=== PATIENT | female | born 1970 | race Caucasian/White ===

== ENCOUNTER → 2017-11-07 12:00 | Outpatient (CLI) | payer MEDICAID, SELFPAY ==
[2017-11-07 14:29] LABS: Erythrocyte Sedimentation Rate 10 mm/hr (0-20)
[2017-11-08 09:14] LABS: RA Latex Turbid. 10.3 IU/mL (0.0-13.9)
[2017-11-09 22:09] LABS: Anti-Cyclic Citrullinated Pept 4 units (0-19)
[2017-11-11 11:31] LABS: Antinuclear Antibodies, IFA Positive (.)
== END ==
PROVIDERS: PCP Internal Medicine; Visit Provider Internal Medicine
DX: E04.9 Nontoxic goiter, unspecified (principal); E03.9 Hypothyroidism, unspecified; I10 Essential (primary) hypertension; M17.0 Bilateral primary osteoarthritis of knee
CPT/HCPCS: 36415; 85651; 86038; 86431

== ENCOUNTER → 2021-09-03 09:49 | Outpatient (CLI) | payer OTHER, SELFPAY ==
--- NOTE | 2021-09-03 09:56 | ECG_ITS ---
APPROVED REPORT Exam: Resting ECG HR:55 bpm ECG Measurements Heart Rate [address] 168 P 31 QRSd 90 QRS 14 QT 418 T 22 QTc 399 Conclusion Sinus bradycardia Otherwise normal ECG Electronically signed by : Graham Sam MD 09/10/2021 12:05:32
== END ==
PROVIDERS: PCP Internal Medicine; Visit Provider Internal Medicine
DX: R07.9 Chest pain, unspecified (principal)
CPT/HCPCS: 93005

== ENCOUNTER → 2023-03-05 11:02 | Outpatient (CLI) | payer OTHER, SELFPAY ==
[2023-03-05 14:15] LABS: Basophils % 0.6 % (0.1-2.0); Eosinophils # 0.2 K/mm3 (0.0-0.4); Eosinophils % 4.5 % (0.1-12.0); Hematocrit 42.3 % (37.0-47.0); Hemoglobin 14.2 g/dL (12.2-16.2); Lymphocytes # 1.4 K/mm3 (0.7-4.5); Lymphocytes % 27.7 % (10-50); Mean Corpuscular HGB Conc 33.6 g/dL (31.8-35.4); Mean Corpuscular Hemoglobin 28.2 pg (27.0-31.2); Mean Platelet Volume 8.7 fl (7.4-10.4); Monocytes # 0.2 K/mm3 (0.1-1.0); Monocytes % 4.6 % (1.7-9.3); Neutrophils # 3.2 K/mm3 (1.8-7.8); Neutrophils % 62.6 % (37.0-80.0); Platelet Count 243 K/mm3 (142-424); Red Blood Count 5.04 M/mm3 (4.20-5.40); Red Cell Distribution Width 15.1 % (11.5-17.5); White Blood Count 5.1 K/mm3 (4.8-10.8)
[2023-03-05 14:36] LABS: Alanine Aminotransferase 42 U/L (12-78); Albumin Level 4.2 g/dl (3.5-5.0); Albumin/Globulin Ratio 1.7 (1.1-1.8); Alkaline Phosphatase 78 U/L (38-126); Anion Gap 14.6 mEq/L (5-15); Aspartate Amino Transferase 36 U/L (14-36); Bilirubin,Total 0.6 mg/dl (0.2-1.3); Blood Urea Nitrogen 11 mg/dl (7-17); Carbon Dioxide 27 mmol/L (22.0-30.0); Chloride 101 mmol/L (98-107); Chol/HDL Ratio 3.7 (1-3.5); Cholesterol 158 mg/dl (140-200); Estimated Glomerular Filt Rate 88 ml/min (>60); GFR (African American) 106 ML/MIN (>60); Globulin 2.5 g/dL (1.3-3.2); Glucose 76 mg/dl (74-100); HDL Cholesterol 43 mg/dl (40-60); Potassium 3.6 mmoL/L (3.5-5.1); Sodium 139 mmol/L (136-145); Total Protein,Serum 6.7 g/dl (6.3-8.2); Triglycerides 286 mg/dl (30-150); VLDL Cholesterol 57 mg/dL (0-40)
[2023-03-05 14:47] LABS: Direct LDL Cholesterol 77.21 mg/dL (100-129)
[2023-03-05 15:07] LABS: Thyroid Stimulating Hormone 1.71 uIU/mL (0.465-4.68)
[2023-03-05 16:04] LABS: Erythrocyte Sedimentation Rate 62 mm/hr (0-30)
== END ==
PROVIDERS: PCP Internal Medicine; Visit Provider Internal Medicine
DX: I10 Essential (primary) hypertension (principal); E78.5 Hyperlipidemia, unspecified; M79.7 Fibromyalgia; M17.0 Bilateral primary osteoarthritis of knee; F33.0 Major depressive disorder, recurrent, mild
CPT/HCPCS: 80053; 80061; 84443; 85025; 85651

== ENCOUNTER → 2023-03-14 09:49 | Outpatient (CLI) | payer OTHER, SELFPAY ==
[2023-03-15 16:08] LABS: Anti-Cyclic Citrullinated Pept 5 units (0-19)
[2023-03-17 15:09] LABS: Cytoplasmic (C-ANCA) <1:20 titer (Neg:<1:20); Perinuclear (P-ANCA) <1:20 titer (Neg:<1:20)
[2023-03-20 09:14] LABS: Lyme B. burgdorferi PCR Blood Negative (Negative)
[2023-04-13 21:14] LABS: Antinuclear Antibodies (ANA) Negative; Rheumatoid Factor IGA < 7 U (<7); Rheumatoid Factor IGM < 7 U (<7)
== END ==
PROVIDERS: PCP Internal Medicine; Visit Provider Internal Medicine
DX: R70.0 Elevated erythrocyte sedimentation rate (principal)
CPT/HCPCS: 36415; 86038; 86200; 86256; 86431; 87476

== ENCOUNTER → 2023-03-25 10:28 | Outpatient (CLI) | payer OTHER, SELFPAY ==
--- NOTE | 2023-03-25 10:30 | XR_ITS ---
FINAL REPORT CLINICAL HISTORY: right heel pain FINDINGS: RIGHT FOOT 3 views of the right foot were obtained. There is no acute fracture or dislocation. Visualized joint spaces are normally aligned. Soft tissues are unremarkable. There is a small to moderate plantar spur of the calcaneus as well as a mild Adán deformity. 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 IMPRESSION: No acute bony abnormality. Reviewed, Interpreted and Dictated by Rafa Brewer MD Transcribed by Jannet Roberson Authenticated and [facility]
--- NOTE | 2023-03-25 10:30 | XR_ITS ---
FINAL REPORT CLINICAL HISTORY: left heel pain COMPARISON: None FINDINGS: LEFT FOOT Three views of the left foot demonstrate no acute fracture or dislocation. The visualized joint spaces are normally aligned. The soft tissues are unremarkable. There is a small to moderate plantar spur of the calcaneus as well as a mild Adán deformity. IMPRESSION: No acute bony abnormality. Reviewed, Interpreted and Dictated by Rafa Brewer MD Transcribed by Jannet Roberson Authenticated and [facility]
== END ==
PROVIDERS: PCP Internal Medicine; Visit Provider Podiatrist
DX: M79.671 Pain in right foot (principal); M79.672 Pain in left foot
CPT/HCPCS: 73630

== ENCOUNTER → 2023-08-07 11:16 | Outpatient (POV) | payer OTHER, SELFPAY | PROVIDERS: Visit Provider Specialist/Technologist | DX: Z00.00 Encounter for general adult medical examination without abnormal findings (principal) ==

== ENCOUNTER → 2023-09-25 08:16 | Outpatient (CLI) | payer OTHER, SELFPAY ==
--- NOTE | 2023-09-25 09:01 | MR_ITS ---
CLINICAL HISTORY: Asymmetrical Hearing Loss COMPARISON: None FINDINGS: Multiplanar MR imaging of the brain was performed without and with contrast. There is no evidence of intracranial hemorrhage or mass. No abnormal extra-axial fluid collection is seen. The ventricular size is within normal limits. There is no evidence of shift of the midline structures. The posterior fossa and brainstem have an unremarkable appearance. No area of abnormal restricted diffusion is identified. No abnormal contrast enhancement is seen. Normal major vessel vascular flow voids are noted. There is minimal abnormal signal present in the mastoid air cells bilaterally, that may represent a minimal mastoiditis. IMPRESSION: Minimal abnormal signal present in the mastoid air cells bilaterally, possibly a minimal mastoiditis. Otherwise, no acute intracranial abnormality identified. Reviewed, Interpreted and Dictated by Rafa Brewer, Transcribed by Jannet Roberson Signed by Rafa Brewer on 09/25/2023 12:52:55 PM, Eastern Time MTDD
[2023-09-25 09:08] LABS: Blood Urea Nitrogen 17 mg/dl (7-17); Estimated Glomerular Filt Rate 43 ml/min (>60); GFR (African American) 52 ML/MIN (>60)
== END ==
PROVIDERS: PCP Internal Medicine; Visit Provider Nurse Practitioner
DX: H91.8X3 Other specified hearing loss, bilateral (principal)
CPT/HCPCS: 70553; 82565; 84520; A9576

== ENCOUNTER 2024-03-17 16:37 | Outpatient (CLI) | payer OTHER, SELFPAY ==
[2024-03-17 16:56] LABS: Basophils % 0.8 % (0.1-2.0); Eosinophils # 0.2 K/mm3 (0.0-0.4); Eosinophils % 4.2 % (0.1-12.0); Hematocrit 44.8 % (37.0-47.0); Hemoglobin 14.8 g/dL (12.2-16.2); Lymphocytes # 1.2 K/mm3 (0.7-4.5); Lymphocytes % 22.4 % (10-50); Mean Corpuscular HGB Conc 33.1 g/dL (31.8-35.4); Mean Corpuscular Volume 87.6 fl (81-99); Mean Platelet Volume 8.7 fl (7.4-10.4); Monocytes # 0.2 K/mm3 (0.1-1.0); Monocytes % 3.9 % (1.7-9.3); Neutrophils # 3.8 K/mm3 (1.8-7.8); Neutrophils % 68.7 % (37.0-80.0); Platelet Count 198 K/mm3 (142-424); Red Blood Count 5.11 M/mm3 (4.20-5.40); Red Cell Distribution Width 15.4 % (11.5-17.5); White Blood Count 5.6 K/mm3 (4.8-10.8)
[2024-03-17 17:30] LABS: Erythrocyte Sedimentation Rate 9 mm/hr (0-30)
[2024-03-17 19:14] LABS: Chloride 104 mmol/L (98-107); Potassium 4.1 mmoL/L (3.5-5.1); Sodium 140 mmol/L (136-145)
[2024-03-17 19:16] LABS: Blood Urea Nitrogen 12 mg/dl (7-17); Estimated Glomerular Filt Rate 65 ml/min (>60); GFR (African American) 79 ML/MIN (>60)
[2024-03-17 19:17] LABS: Alanine Aminotransferase 42 U/L (12-78); Albumin Level 4.2 g/dl (3.5-5.0); Albumin/Globulin Ratio 1.4 (1.1-1.8); Alkaline Phosphatase 84 U/L (38-126); Anion Gap 10.1 mEq/L (5-15); Aspartate Amino Transferase 30 U/L (14-36); Bilirubin,Total 0.6 mg/dl (0.2-1.3); Carbon Dioxide 30 mmol/L (22.0-30.0); Cholesterol 221 mg/dl (140-200); Globulin 2.9 g/dL (1.3-3.2); Total Protein,Serum 7.1 g/dl (6.3-8.2); Triglycerides 363 mg/dl (30-150); VLDL Cholesterol 73 mg/dL (0-40)
[2024-03-17 19:18] LABS: Calcium 9.8 mg/dl (8.4-10.2); Chol/HDL Ratio 4.5 (1-3.5); Glucose 84 mg/dl (74-100); HDL Cholesterol 49 mg/dl (40-60)
[2024-03-17 19:43] LABS: Direct LDL Cholesterol 105.76 mg/dL (100-129)
[2024-03-17 20:05] LABS: Thyroid Stimulating Hormone 1.04 uIU/mL (0.465-4.68)
[2024-03-19 12:34] LABS: Anti-Cyclic Citrullinated Pept 7 units (0-19)
== END 2024-03-17 23:59 | disposition home or self-care (01) ==
LOC: LAB.DROPOF 16:38
PROVIDERS: PCP Internal Medicine; Visit Provider Internal Medicine
DX: I10 Essential (primary) hypertension (principal); M17.0 Bilateral primary osteoarthritis of knee; E03.9 Hypothyroidism, unspecified; E04.9 Nontoxic goiter, unspecified; E78.5 Hyperlipidemia, unspecified; F33.0 Major depressive disorder, recurrent, mild; G43.809 Other migraine, not intractable, without status migrainosus; M79.7 Fibromyalgia
CPT/HCPCS: 80053; 80061; 84443; 85025; 85651; 86200

== ENCOUNTER 2024-09-21 10:51 | Outpatient (CLI) | payer OTHER, SELFPAY ==
[2024-09-21 12:50] LABS: Basophils % 0.7 % (0.1-2.0); Eosinophils # 0.2 K/mm3 (0.0-0.4); Eosinophils % 3.2 % (0.1-12.0); Hematocrit 40.7 % (37.0-47.0); Hemoglobin 14.2 g/dL (12.2-16.2); Lymphocytes # 1.2 K/mm3 (0.7-4.5); Lymphocytes % 24.9 % (10-50); Mean Corpuscular HGB Conc 34.9 g/dL (31.8-35.4); Mean Corpuscular Hemoglobin 29.8 pg (27.0-31.2); Mean Corpuscular Volume 85.4 fl (81-99); Mean Platelet Volume 8.4 fl (7.4-10.4); Monocytes # 0.3 K/mm3 (0.1-1.0); Neutrophils # 3.1 K/mm3 (1.8-7.8); Neutrophils % 65.2 % (37.0-80.0); Platelet Count 195 K/mm3 (142-424); Red Blood Count 4.76 M/mm3 (4.20-5.40); White Blood Count 4.8 K/mm3 (4.8-10.8)
[2024-09-21 13:52] LABS: Alanine Aminotransferase 37 U/L (12-78); Albumin Level 4.2 g/dl (3.5-5.0); Albumin/Globulin Ratio 1.7 (1.1-1.8); Alkaline Phosphatase 80 U/L (38-126); Aspartate Amino Transferase 32 U/L (14-36); Bilirubin,Total 0.8 mg/dl (0.2-1.3); Blood Urea Nitrogen 12 mg/dl (7-17); Carbon Dioxide 32 mmol/L (22.0-30.0); Cholesterol 186 mg/dl (140-200); Estimated Glomerular Filt Rate 58 ml/min (>60); GFR (African American) 70 ML/MIN (>60); Globulin 2.5 g/dL (1.3-3.2); Total Protein,Serum 6.7 g/dl (6.3-8.2); Triglycerides 352 mg/dl (30-150); VLDL Cholesterol 70 mg/dL (0-40)
[2024-09-21 13:55] LABS: Calcium 9.8 mg/dl (8.4-10.2); Chloride 102 mmol/L (98-107); Chol/HDL Ratio 4.8 (1-3.5); Glucose 70 mg/dl (74-100); HDL Cholesterol 39 mg/dl (40-60); Sodium 141 mmol/L (136-145)
[2024-09-21 14:04] LABS: Direct LDL Cholesterol 94.53 mg/dL (100-129)
[2024-09-21 14:23] LABS: Thyroid Stimulating Hormone 1.24 uIU/mL (0.465-4.68)
== END 2024-09-21 23:59 | disposition home or self-care (01) ==
LOC: LAB.DROPOF 09-22 06:58
PROVIDERS: PCP Internal Medicine; Visit Provider Internal Medicine
DX: E03.9 Hypothyroidism, unspecified (principal); E78.5 Hyperlipidemia, unspecified; I10 Essential (primary) hypertension; Z72.0 Tobacco use
CPT/HCPCS: 80050; 80053; 80061; 84443; 85025

== ENCOUNTER 2025-05-09 14:00 | Outpatient (CLI) | payer OTHER, SELFPAY ==
[2025-05-09 18:29] LABS: Albumin Level 4.4 g/dl (3.5-5.0); Chloride 98 mmol/L (98-107); Potassium 4.8 mmoL/L (3.5-5.1); Sodium 140 mmol/L (136-145)
[2025-05-09 18:31] LABS: Blood Urea Nitrogen 13 mg/dl (7-17); Creatinine,Serum 1.20 mg/dl (0.52-1.04); Estimated Glomerular Filt Rate 47 ml/min (>60); GFR (African American) 57 ML/MIN (>60)
[2025-05-09 18:32] LABS: Alanine Aminotransferase 35 U/L (12-78); Albumin/Globulin Ratio 1.5 (1.1-1.8); Alkaline Phosphatase 77 U/L (38-126); Anion Gap 13.8 mEq/L (5-15); Aspartate Amino Transferase 31 U/L (14-36); Bilirubin,Total 0.8 mg/dl (0.2-1.3); Calcium 9.6 mg/dl (8.4-10.2); Carbon Dioxide 33 mmol/L (22.0-30.0); Cholesterol 215 mg/dl (140-200); Globulin 2.9 g/dL (1.3-3.2); Glucose 69 mg/dl (74-100); HDL Cholesterol 40 mg/dl (40-60); Total Protein,Serum 7.3 g/dl (6.3-8.2); Triglycerides 352 mg/dl (30-150)
[2025-05-09 19:05] LABS: Thyroid Stimulating Hormone 1.07 uIU/mL (0.465-4.68)
== END 2025-05-09 23:59 | disposition home or self-care (01) ==
LOC: LAB.DROPOF 05-10 12:38
PROVIDERS: PCP Internal Medicine; Visit Provider Internal Medicine
DX: E78.5 Hyperlipidemia, unspecified (principal); I10 Essential (primary) hypertension; E03.9 Hypothyroidism, unspecified
CPT/HCPCS: 80053; 80061; 84443

== ENCOUNTER 2025-06-29 10:40 | Outpatient (CLI) | payer OTHER, SELFPAY ==
--- OUTSIDE RECORDS SUMMARY | 2025-05-25 13:15 | XMS_ITS | Encounter Summary ---
Author Organization [email or web address] ([place], [place], [place], [place]) Address [address] [place] [address] Care Team Providers Care Hadoop Software Engineer Name Role Phone Kristina Guzman MD Unavailable [phone] Graham Sam MD Primary Care Provider [phone] Reason for Referral * Other (Routine) - Closed Specialty Diagnoses / Procedures Referred By Wilbert back Referred To Contact Diagnoses Carpal tunnel syndrome on left Procedures EMG W/ NCS Kristina Guzman MD [address] [place] [address] Phone: tel: fax: Tobias Pantoja, PT [address] [place] [address] Phone: tel: fax: Referral ID Status Reason Start Date Expiration Date Visits Re quested Visits Authorized [id number] Closed 06/08/2025 06/08/2026 1 1 Reason for Visit * Reason Comments Follow-up Left carpal tunnel s yndrome Encounter Details Date Type Department Care Team (Late st Contact Info) Description 05/25/2025 1:15 PM EDT Office Visit [facility] - [address] [place] [address] Kristina Guzman MD [address] [place] [address] Carpal tunnel syndrome on right (Primary Dx); Carpal tunnel syndrome on left; Trigger middle finger of left hand Social History Tobacco Use Types Packs/Day Years Used Date Smoking Tobacco: Never Smokeless Tobacco: Never Tobacco Cessation:Counseling Given: Not Answered Alcohol Use Standard Drinks/Week Comments Never 0 (1 standard drink = 0.6 oz pur e alcohol) Comments Unknown Sex and Gender Information Value Date Recorded Sex Assigned at Not on file Legal Sex Female 10:19 AM CDT Gender Identity Not on file Sexual Orientation Not on file documented as of this encounter Last Filed Vital Signs Vital Sign Reading Time Taken Comments Blood Pressure 122/88 05/25/2025 1:23 PM EDT Pulse 76 05/25/2025 1:23 PM EDT Temperature - - Respiratory Rate - - Oxygen Saturation - - Inhaled Oxygen Concentration - - Weight 106.6 kg (235 lb) 05/25/2025 1:23 PM EDT Height 165.1 cm (5' 5 ) 05/25/2025 1:23 PM EDT Body Mass Index 39.11 05/25/2025 1:23 PM EDT documented in this encounter Progress Notes * Kristina Guzman MD - 05/25/2025 1:15 PM EDT Subjective: Lam Ferro is a 54 y.o. female. No ref. provider found Work Comp []Yes []No Hand Dominance: right-handed Employment: Chief Complaint Patient presents with Follow-up Left carpal tunnel syndrome New patient referral for left carpal tunnel syndrome. Patient reports her symptoms have been presents for 5-6 months. Patient reports no relief with bracing. Patient reports most of the numbness and tingling is hyman area near the thumb. Patient rates her pain 5/10 in office. She has had no prior tx and does not have an EMG Valente R 50 L 40 Osuna Pinch R 16 L 6 Date of Onset of Symptoms: [x]On-going problem Trauma: [x]+ []- Mechanism of Injury: none Pain Location: Severity (1-10) Quality: Numbness: [x]+ []- [x]Occasional []Constant Tingling: [x]+ []- [x]Occasional []Constant Night Symptoms: []+ [x]- x/wk Additional Symptoms: []None []Drainage []Neck Pain []Redness []Swelling []Stiffness []Bruising [x]Weakness []Drop Items []Other: Review of Systems []No change from previous []Change from previous [x]Reviewed ROS by Kristina Guzman MD General: No recent fever or chills, no recent weight loss or weight gain, no insomnia HEENT: No change in vision, no glasses/contacts, no hearing loss, no tinnitus, no vertigo, no congestion/sinus issues CVS: No chest pain, no palpitations, no edema, no varicose veins Resp: No dyspnea, no wheezing, no cough, no hemoptysis GI: No dysphagia, no nausea, no vomiting, no heart burn, no constipation, no diarrhea : No dysuria, no hematuria, no nocturia, no history of chronic UTI Musculoskeletal: See HPI Derm: No rash, no abrasions, no skin discoloration, no history or MRSA Neuro: No headaches, no seizures, no stroke, no tremors, no muscle weakness, no difficulty walking,no numbness/tingling, no neuropathy Endo: No cold/heat intolerance Heme: No abnormal bruising or bleeding Psych: No depression, no anxiety, no fatigue, no mood swings Vitals: 05/25/25 1323 BP: 122/88 Pulse: 76 Weight: 106.6 kg (235 lb) Height: 1.651 m (5' 5 ) Past Medical History: Diagnosis Date Arthritis Years Carpal tunnel syndrome Can't remember but years Fibromyositis About 5 or 6 years GERD (gastroesophageal reflux disease) Hypertension Years Rheumatoid arthritis (HCC) Thyroid disease No past surgical history on file. Current Outpatient Medications Medication Sig Dispense Refill amLODIPine (NORVASC) 2.5 MG tablet Take 1 tablet (2.5 mg total) by mouth daily. atorvastatin (LIPITOR) 20 MG tablet Take 1 tablet (20 mg total) by mouth nightly. azelastine (ASTELIN) 137 mcg (0.1 %) nasal spray 2 sprays 2 (two) times daily. buPROPion SR (WELLBUTRIN SR) 200 MG 12 hr tablet SMARTSI Milligram(s) By Mouth DULoxetine (CYMBALTA) 60 MG capsule Take 1 capsule (60 mg total) by mouth every morning. metoprolol succinate (TOPROL-XL) 200 MG 24 hr tablet Take 1 tablet (200 mg total) by mouth daily. pantoprazole (PROTONIX) 40 MG tablet Take 1 tablet (40 mg total) by mouth daily. triamterene-hydroCHLOROthiazide (MAXZIDE-25) 37.5-25 mg per tablet Take 1 tablet by mouth every morning. diclofenac sodium 1 % gel ibuprofen (MOTRIN) 600 MG tablet Take 1 tablet (600 mg total) by mouth every 4 (four) hours as needed. levothyroxine (SYNTHROID) 50 MCG tablet triamcinolone-dimethicone 0.1-5 % ktoc No current facility-administered medications for this visit. No Known Allergies Family History Problem Relation Name Age of Onset Arthritis Mother Kady Ferro Diabetes Mother Kady Ferro Heart disease Mother Kady Ferro High blood pressure Mother Kady Ferro Kidney disease Mother Kady Ferro Stroke Mother Kady Ferro Cancer Maternal Grandfather Grandad Cancer Paternal Aunt Aunt Heart disease Maternal Aunt [place] Social History Tobacco Use Smoking status: Never Smokeless tobacco: Never Substance Use Topics Alcohol use: Never Objective: BP 122/88 Pulse 76 Ht 1.651 m (5' 5 ) Wt 106.6 kg (235 lb) BMI 39.11 kg/m?? Physical Exam Physical Examination: General: [x]Awake, Alert, Oriented [x]Ambulatory [x]No Acute Distress [x]Mucus Membranes pink, moist [x]Pupils equal [x]Respiratory even, unlabored Skin: [x]Warm and dry with good cap refill [] []+ [x]- []+ [x]- []+ [x]- []+ [x]- Dystrophic changes Hypersweating Hypertrichosis Discoloration Wound/Incision: []+ []- Location: [] Healed []NSOI []C/D/I []Ecchymosis []Erythema []Swelling Peripheral Vessels: Palpable pulses: ~[x]~ Radial Artery ~[x]~ Ulnar Artery ~[x]~ Good Capillary Refill Drake's Test /____ R/L /____ Hand (+) or (-) Right Left 1st CMC Tenderness []+ []- []+ []- 1st VOLUNTEER MANAGER Grind []+ []- []+ []- Sina Nodes []+ []- []+ []- Heberden Nodes []+ []- []+ []- A1 Lesly Tenderness []+ []- [x]+ []-long Triggering []+ []- [x]+ []-long Pain on lateral stress []+ []- []+ []- UCL Instability []+ []- []+ []- RCL Instability []+ []- []+ []- Thenar Atrophy []+ []- []+ []- Hypothenar Atrophy []+ []- []+ []- Tinels Compression Right Left Right Left Carpel Tunnel []+ []- [x]+ []- Carpal T []+ []- [x]+ []- Pronator []+ []- []+ []- Phalen's []+ []- [x]+ []- Cubital Tunnel []+ []- []+ [x]- Pronator T []+ []- []+ []- Guyon's Canal []+ []- []+ [x]- Elbow Hyperflex []+ []- []+ []- Infraclavicular []+ []- []+ []- Infraclavicular []+ []- []+ []- Supraclavicular []+ []- []+ []- Supraclavicular []+ []- []+ []- EMG/NCS: No results found for this or any previous visit. Imaging Treatment: Procedures Assessment: ICD-10-CM ICD-9-CM 1. Carpal tunnel syndrome on right G56.01 354.0 2. Carpal tunnel syndrome on left G56.02 354.0 EMG W/ NCS 3. Trigger middle finger of left hand M65.332 727.03 Plan: Other than bracing the patient has not had any formal treatment for left carpal tunnel symptoms. She is also having a left long trigger finger become more more symptomatic especially in the mornings.We will proceed with a left EMG nerve conduction study and see her the day of the study. At that point we will determine what path to take for the carpal tunnel and can offer her an injection for that and/or the left long trigger finger After the study Patient instructions given. I have examined and questioned the above listed patient and provided or received all documentation,establishing, confirming, and revising as necessary, the findings and statements noted. . [employer] disclaimer: Much of this encounter note is an electronic measuring clerk/translation of spoken language to printed text. The electronic translation of spoken language may permit erroneous, or at times, nonsensical words or phrases to be inadvertently transcribed; Although thenote is reviewed for such errors, some may still exist. documented in this encounter Plan of Treatment Upcoming Encounters Date Type Department Care Team (Late st Contact Info) Description 09/07/2025 2:00 PM EST Office Visit [facility] - [address] [place] [address] Kristina Guzman MD [address] [place] [address] Scheduled Orders Name Type Priority Associated Diagnoses Orde r Schedule EMG W/ NCS Neurology Routine Carpal tunnel syndrome on left Expected: 06/08/2025 (Approximate), Expires: 08/25/2025 documented as of this encounter Visit Diagnoses Diagnosis Carpal tunnel syndrome on right- Primary Carpal tunnel syndrome Carpal tunnel syndrome on left Carpal tunnel syndrome Trigger middle finger of left hand documented in this encounter Care Teams Hadoop Software Engineer Relationship Specialty Start Date End Date Graham Sam MD [address] [place] [address] [place] [address] PCP - General General Internal Medicine 05/24/25 Kristina Guzman MD [address] [place] [id number] Consulting Physician Orthopedic Surgery - Hand 05/24/25 documented as of this encounter
--- OUTSIDE RECORDS SUMMARY | 2025-06-06 13:45 | XMS_ITS | Encounter Summary ---
Author Organization [employer] ([place], [place], [place], [place]) Address [address] [place] [address] Care Team Providers Care Fur Stretcher Name Role Phone Kristina Guzman MD Unavailable [phone] Graham Sam MD Primary Care Provider [phone] Encounter Details Date Type Department Care Team (Late st Contact Info) Description 06/06/2025 1:45 PM EDT Office Visit [facility] [address] [place] [address] Kristina Guzman MD [address] [place] [address] Carpal tunnel syndrome on left (Primary Dx); Carpal tunnel syndrome on right; Trigger middle finger of left hand Social History Tobacco Use Types Packs/Day Years Used Date Smoking Tobacco: Never Smokeless Tobacco: Never Alcohol Use Standard Drinks/Week Comments Never 0 [...] Sign Reading Time Taken Comments Blood Pressure 128/88 06/06/2025 2:03 PM EDT Pulse 71 06/06/2025 2:03 PM EDT Temperature - - Respiratory Rate - - Oxygen Saturation - - Inhaled Oxygen Concentration - - Weight 106.6 kg (235 lb) 06/06/2025 2:03 PM EDT Height 165.1 cm (5' 5 ) 06/06/2025 2:03 PM EDT Body Mass Index 39.11 06/06/2025 2:03 PM EDT documented in this encounter Progress Notes * Kristina Guzman MD - 06/06/2025 1:45 PM EDTAssociated Order(s): L CTI Images from the original note were not included. Subjective: Lam Ferro is a 54 y.o. female. Graham Sam MD Work Comp []Yes [x]No Hand Dominance: right-handed Employment: Unemployed No chief complaint on file. Follow-up today to review nerve conduction study results. She c/o Left CTS, L long trigger finger . Pain is 3 out of 10, dull, ache throbs and almodovar Valente L hand 41, R hand 32, L pinch 10, R pinch 13 Date of Onset of Symptoms: [x]On-going problem Trauma: []+ [x]- Mechanism of Injury: none Pain Location: Severity (1-10) Quality: varies Numbness: [x]+ []- [x]Occasional []Constant Tingling: [x]+ []- [x]Occasional []Constant Night Symptoms: []+ [x]- x/wk Additional Symptoms: []None []Drainage []Neck Pain []Redness []Swelling []Stiffness []Bruising [x]Weakness []Drop Items []Other: Review of Systems [x]No change from previous []Change from previous [x]Reviewed [...] anxiety, no fatigue, no mood swings Vitals: 06/06/25 1403 BP: 128/88 Pulse: 71 Weight: 106.6 kg (235 lb) Height: 1.651 m (5' 5 ) Past Medical History: Diagnosis Date Arthritis Years Carpal tunnel syndrome Can't remember but years Fibromyositis About 5 or 6 years GERD (gastroesophageal reflux disease) Hypertension Years Migraines Rheumatoid arthritis (HCC) Thyroid disease Past Surgical History: Procedure Laterality Date ANTERIOR FUSION CERVICAL SPINE N/A CHOLECYSTECTOMY N/A Current Outpatient Medications Medication Sig Dispense Refill ubrogepant (Ubrelvy) 100 mg tab tablet Take 1 tablet (100 mg total) by mouth once as needed. amLODIPine (NORVASC) 2.5 MG tablet Take 1 tablet (2.5 mg total) by mouth daily. atorvastatin (LIPITOR) 20 MG tablet Take 1 tablet (20 mg total) by mouth nightly. azelastine (ASTELIN) 137 mcg (0.1 %) nasal spray 2 sprays 2 (two) times daily. buPROPion SR (WELLBUTRIN SR) 200 MG 12 hr tablet SMARTSI Milligram(s) By Mouth diclofenac sodium 1 % gel DULoxetine (CYMBALTA) 60 MG capsule Take 1 capsule (60 mg total) by mouth every morning. ibuprofen (MOTRIN) 600 MG tablet Take 1 tablet (600 mg total) by mouth every 4 (four) hours as needed. levothyroxine (SYNTHROID) 50 MCG tablet metoprolol succinate (TOPROL-XL) 200 MG 24 hr tablet Take 1 tablet (200 mg total) by mouth daily. pantoprazole (PROTONIX) 40 MG tablet Take 1 tablet (40 mg total) by mouth daily. triamcinolone-dimethicone 0.1-5 % ktoc triamterene-hydroCHLOROthiazide (MAXZIDE-25) 37.5-25 mg per tablet Take 1 tablet by mouth every morning. No current facility-administered medications for this visit. No Known Allergies Family History Problem Relation Name Age of Onset Arthritis Mother Kady Ferro Diabetes Mother Kady Ferro Heart disease Mother Kady Ferro High blood pressure Mother Kady Ferro Kidney disease Mother Kady Ferro Stroke Mother Kady Ferro Cancer Maternal Grandfather Grandad Cancer Paternal Aunt Aunt Heart disease Maternal Aunt Margo holland Social History Tobacco Use Smoking status: Never Smokeless tobacco: Never Substance Use Topics Alcohol use: Never Objective: BP 128/88 Pulse 71 Ht 1.651 m (5' 5 ) Wt [...] Capillary Refill Drake's Test /____ R/L /____ Tinels Compression Right Left Right Left Carpel Tunnel [x]+ []- [x]+ []- Carpal T [x]+ []- [x]+ []- Pronator []+ []- []+ []- Phalen's [x]+ []- [x]+ []- Cubital Tunnel []+ [x]- []+ [x]- Pronator T []+ []- []+ []- Guyon's Canal []+ [x]- []+ [x]- Elbow Hyperflex []+ []- []+ []- Infraclavicular []+ []- []+ []- Infraclavicular []+ []- []+ []- Supraclavicular []+ []- []+ []- Supraclavicular []+ []- []+ []- EMG/NCS: 06/06/25 Imaging Treatment: L CTI Date/Time: 06/06/2025 2:30 PM Performed by: Kristina Guzman MD Authorized by: Kristina Guzman MD Consent: Consent obtained: Verbal and written Consent given by: Patient Risks, benefits, and alternatives were discussed: yes Risks discussed: Bleeding, infection, pain, incomplete drainage, nerve damage and poor cosmetic result [place] protocol: Procedure explained and questions answered to patient or proxy's satisfaction: yes Relevant documents present and verified: yes Test results available: yes Imaging studies available: yes Site/side marked: yes Immediately prior to procedure, a time out was called: yes Patient identity confirmed: Verbally with patient Indications: Indications: Carpal Tunnel Syndrome Pre-procedure details: Preparation: Patient was prepped and draped in the usual sterile fashion Sedation: Sedation type: None Anesthesia: Anesthesia method: Topical application Procedure specific details: Left Carpal Tunnel injections We discussed conservative treatment with Kenalog injections which can take several days for effect.Transient numbness in the hand was discussed post injection which will resolve in a few hours. The hand was laid in the supine position. 1 ml of 1% Lidocaine and Kenalog 10mg were injected ulnar to the palmaris longus tendon (in the soft indentation of the volar wrist) after the skin was prepped with adequately with alcohol. A sterile bandaid was applied. Post-procedure details: Procedure completion: Tolerated well, no immediate complications Assessment: ICD-10-CM ICD-9-CM 1. Carpal tunnel syndrome on right G56.01 354.0 lidocaine (XYLOCAINE) injection 1% triamcinolone acetonide suspension (KENALOG-40) 40 mg/mL injection 10 mg 2. Carpal tunnel syndrome on left G56.02 354.0 3. Trigger middle finger of left hand M65.332 727.03 Plan: EMG/NCS reviewed with the patient and copy of the report was provided there is definite evidence ofvery mild left carpal tunnel syndrome and mild left cubital tunnel syndrome. The patient elects to proceed with a left carpal tunnel injection today Discussed treatment options for Carpal Tunnel Syndrome, including braces, injections and carpal tunnel release. Patient states understanding of all options and has elected to proceed with L CTI The patient education brochure on carpal tunnel syndrome has been provided to the patient. continue night splints (patient has purchased OTC) B6/E Vitamins If symptoms persist without benefit from injection after 2 weeks, we will obtain emg/ncs study. We discussed our intent to continue with conservative management as long as the injections provide appropriate relief of symptoms or until surgery is elected by the patient. Sleep modification discussion maintaining the elbow in extension was discussed with her as well Return in about 3 months (around 09/06/2025). Patient instructions given. I have examined and questioned the above listed patient and provided or received all documentation,establishing, confirming, and revising as necessary, the findings and statements noted. . EMR/[employer] disclaimer: Much of this encounter note is an electronic clothing worker/translation of spoken language to printed text. The electronic translation of spoken language may permit erroneous, or at times, nonsensical words or phrases to be inadvertently transcribed; Although thenote is reviewed for such errors, some may still exist. documented in this encounter Plan of Treatment Upcoming Encounters Date Type Department Care Team (Late st Contact Info) Description 09/07/2025 2:00 PM EST Office Visit [facility] [address] [place] [address] Kristina Guzman MD [address] [place] [address] documented as of this encounter Procedures Procedure Name Priority Date/Time Associated Diagnosis Comments FS_[facility]_MODEL GENERAL FORM Routine 06/06/2025 2:30 PM EDT Carpal tunnel syndrome on left documented in this encounter Results * L CTI (06/06/2025 2:30 PM EDT) Narrative Kristina Guzman MD - 06/06/2025 2:30 PM EDT Kristina Guzman MD 06/06/2025 2:32 PM L CTI Date/Time: 06/06/2025 2:30 PM Performed by: Kristina Guzman MD Authorized by: Kristina Guzman MD Consent: Consent obtained: Verbal and written Consent given by: Patient Risks, benefits, and alternatives were discussed: yes Risks discussed: Bleeding, infection, pain, incomplete drainage, nerve damage and poor cosmetic result [place] protocol: Procedure explained and questions answered to patient or proxy's satisfaction: yes Relevant documents present and verified: yes Test results available: yes Imaging studies available: yes Site/side marked: yes Immediately prior to procedure, a time out was called: yes Patient identity confirmed: Verbally with patient Indications: Indications: Carpal Tunnel Syndrome Pre-procedure details: Preparation: Patient was prepped and draped in the usual sterile fashion Sedation: Sedation type: None Anesthesia: Anesthesia method: Topical application Procedure specific details: Left Carpal Tunnel injections We discussed conservative treatment with Kenalog injections which can take several days for effect. Transient numbness in the hand was discussed post injection which will resolve in a few hours. The hand was laid in the supine position. 1 ml of 1% Lidocaine and Kenalog 10mg were injected ulnar to the palmaris longus tendon (in the soft indentation of the volar wrist) after the skin was prepped with adequately with alcohol. A sterile bandaid was applied. Post-procedure details: Procedure completion: Tolerated well, no immediate complications Kristina Guzman MD PROCEDURE/MINOR SURGICAL ORDERABLES Final Result documented in this encounter Visit Diagnoses Diagnosis Carpal tunnel syndrome on left- Primary Carpal tunnel syndrome Carpal tunnel syndrome on right Carpal tunnel syndrome Trigger middle finger of left hand documented in this encounter Administered Medications Inactive Administered Medications - up to 3 most recent administrations Medication Order MAR Action Action Date Dose Rate Site lidocaine (XYLOCAINE) injection 1% 1 mL Once, intra-articular, On Fri06/06/25 at 1500, For 1 doseIndications:Carpal tunnel syndrome on left Given 06/06/2025 2:27 PM EDT 1 mL O ther triamcinolone acetonide suspension (KENALOG-40) 40 mg/mL injection 10 mg 10 mg Once, intra-articular, On Fri06/06/25 at 1500, For 1 doseIndications:Carpal tunnel syndrome on left Given 06/06/2025 2:26 PM EDT 10 mg O ther documented in this encounter Care Teams Fur Stretcher Relationship Specialty Start Date End Date Graham Sam MD [address] [place] [address] PCP - General General Internal Medicine 05/24/25 Kristina Guzman MD [address] [place] [address] Consulting Physician Orthopedic Surgery - Hand 05/24/25 documented as of this encounter
[2025-06-29 16:03] LABS: Chloride 102 mmol/L (98-107)
[2025-06-29 16:04] LABS: Potassium 4.1 mmoL/L (3.5-5.1); Sodium 141 mmol/L (136-145)
[2025-06-29 16:07] LABS: Anion Gap 12.1 mEq/L (5-15); Blood Urea Nitrogen 20 mg/dl (7-17); Calcium 10.1 mg/dl (8.4-10.2); Carbon Dioxide 31 mmol/L (22.0-30.0); Creatinine,Serum 1.10 mg/dl (0.52-1.04); Estimated Glomerular Filt Rate 52 ml/min (>60); GFR (African American) 63 ML/MIN (>60); Glucose 86 mg/dl (74-100)
--- OUTSIDE RECORDS SUMMARY | 2025-07-01 09:41 | XMS_ITS | Clinical Summary ---
Author Organization [employer] ([place], [place], [place], [place]) Address [address] [place] [address] Care Team Providers Care Epic Cupid Analyst Name Role Phone Kristina Guzman MD Unavailable [phone] Graham Sam MD Primary Care Provider [phone] Allergies No known active allergies Medications triamcinolone-d imethicone 0.1-5 % ktoc Active amLODIPine (NORVASC) 2.5 MG tablet Take 1 tablet (2.5 mg total) by mouth daily. 05/10/2025 Active atorvastatin (LIPITOR) 20 MG tablet Take 1 tablet (20 mg total) by mouth nightly. 05/05/2025 Active azelastine (ASTELIN) 137 mcg (0.1 %) nasal spray 2 sprays 2 (two) times daily. 04/04/2025 Active buPROPion SR (WELLBUTRIN SR) 200 MG 12 hr tablet SMARTSI Milligram(s) By Mouth 05/16/2025 Active diclofenac sodium 1 % gel Activ e DULoxetine (CYMBALTA) 60 MG capsule Take 1 capsule (60 mg total) by mouth every morning. 05/10/2025 Active ibuprofen (MOTRIN) 600 MG tablet Take 1 tablet (600 mg total) by mouth every 4 (four) hours as needed. Active levothyroxine (SYNTHROID) 50 MCG tablet Active metoprolol succinate (TOPROL-XL) 200 MG 24 hr tablet Take 1 tablet (200 mg total) by mouth daily. 03/14/2025 Active pantoprazole (PROTONIX) 40 MG tablet Take 1 tablet (40 mg total) by mouth daily. 03/14/2025 Active triamterene-hyd roCHLOROthiazid e (MAXZIDE-25) 37.5-25 mg per tablet Take 1 tablet by mouth every morning. 05/10/2025 Active ubrogepant (Ubrelvy) 100 mg tab tablet Take 1 tablet (100 mg total) by mouth once as needed. 06/03/2025 Active Hospital, Clinic, or Other Facility Administered Medication Ordered Dose Route Frequency Start Date End Date Status lidocaine (XYLOCAINE) injection 1%Indications:Carpal tunnel syndrome on left 1 mL IAtc Once 06/06/2025 06/06/2025 Ended triamcinolone acetonide suspension (KENALOG-40) 40 mg/mL injection 10 mgIndications:Carpal tunnel syndrome on left 10 mg IAtc Once 06/06/2025 06/06/2025 Ended Active Problems No known active problems Encounters Date Type Department Care Team Description 06/06/2025 1:45 PM EDT Office Visit [facility] - [address] [place] [address] Kristina Guzman MD Carpal tunnel syndrome on left (Primary Dx); Carpal tunnel syndrome on right; Trigger middle finger of left hand 05/25/2025 1:15 PM EDT Office Visit [facility] - [address] [place] [address] Kristina Guzman MD Carpal tunnel syndrome on right (Primary Dx); Carpal tunnel syndrome on left; Trigger middle finger of left hand from Last 3 Months Family History Medical History Relation Name Comments Heart disease Maternal Aunt Margo holland Cancer Maternal Grandfather Grandad Arthritis Mother Kady Ferro Diabetes Mother Kady Ferro Heart disease Mother Kady Ferro High blood pressure Mother Kady Ferro Kidney disease Mother Kady Ferro Stroke Mother Kady Ferro Cancer Paternal Aunt Aunt Relation Name Status Comments Maternal Aunt Margo holland Maternal Grandfather Grandad Mother Kady Ferro Paternal Aunt Aunt Social History Tobacco Use Types Packs/Day Years [...] on file Sexual Orientation Not on file Last Filed Vital Signs Vital Sign Reading [...] Mass Index 39.11 06/06/2025 2:03 PM EDT Plan of Treatment Upcoming Encounters Date Type Department Care Team (Late st Contact Info) Description 09/07/2025 2:00 PM EST Office Visit [facility] - [address] [place] [id number] Kristina Guzman MD [address] [place] [address] Health Maintenance Due Date Last Done Comments CT Colonography 1970 Colonoscopy 1970 Colorectal Cancer Screening 1970 FOBT/FIT 1970 Fit-DNA (Cologuard) 1970 Sigmoidoscopy 1970 Depression Screening (12+) 1982 HIV Screening 1985 Hepatitis C Screening 1988 Pap Smear 1991 Breast Cancer Screening 2010 Lipid Panel 2015 Pneumococcal 50+ years (1 of 1 - PCV) 2020 Shingles Vaccine (Zoster) (2 of 2) 05/06/20212020 COVID-19 VACCINE (3 - season) 2024, 03/11/2021 Influenza Vaccine (#1) 2025 Tobacco Cessation Counseling and Screening (12+) 06/06/2026 06/06/2025 DTAP/TDAP/TD VACCINES (2 - Td or Tdap) 03/11/2031 Procedures Procedure Name Priority Date/Time Associated Diagnosis Comments FS_[facility]_MODEL GENERAL FORM Routine 06/06/2025 2:30 PM EDT Carpal tunnel syndrome on left from Last 3 Months Results * L CTI (06/06/2025 2:30 PM EDT) Kristina Bergeron MD - 06/06/2025 2:30 PM EDT Kristina Guzman MD 06/06/2025 2:32 PM L CTI Date/Time: 06/06/2025 2:30 PM Performed by: Kristina Guzman MD Authorized by: Kristina Guzman MD Consent: Consent obtained: Verbal and written Consent given by: Patient Risks, benefits, and alternatives were discussed: yes Risks discussed: Bleeding, infection, pain, incomplete drainage, nerve damage and poor cosmetic result [place] protocol: Procedure explained and questions answered to [...] Guzman MD PROCEDURE/MINOR SURGICAL ORDERABLES Final Result from Last 3 Months Insurance [employer] [facility] Care Teams Epic Cupid Analyst Relationship Specialty Start Date End Date Graham aSm MD [address] [place] [address] PCP - General General Internal Medicine 05/24/25 Kristina Guzman MD [address] [place] [address] Consulting Physician Orthopedic Surgery - Hand 05/24/25
--- OUTSIDE RECORDS SUMMARY | 2025-07-01 09:41 | XMS_ITS | Clinical Summary ---
Author Organization [facility] Address [address] [place] [address] Care Team Providers Care Quantitative Analyst Marketing Name Role Phone Mahin Rocha MD Primary Care Provider [phone] Allergies No known active allergies Medications ibuprofen (ADVIL,MOTRIN) 600 MG tablet Take 600 mg by mouth Every 4 (Four) Hours As Needed for mild pain (1-3). Active metoprolol succinate XL (TOPROL-XL) 200 MG 24 hr tabletIndications:E ssential hypertension Take 1 tablet by mouth Daily. 90 tablet 1 7 Active venlafaxine XR (EFFEXOR-XR) 75 MG 24 hr capsuleIndications: Recurrent major depressive disorder, in full remission Take 1 capsule by mouth Daily. 90 capsule 1 7 Active venlafaxine XR (EFFEXOR-XR) 150 MG 24 hr capsuleIndications: Recurrent major depressive disorder, in full remission Take 1 capsule by mouth Daily. 90 capsule 1 7 Active triamterene-hydroch lorothiazide (MAXZIDE-25) 37.5-25 MG per tabletIndications:E ssential hypertension Take 0.5 tablets by mouth Daily. 15 tablet 5 7 Active levothyroxine (SYNTHROID, LEVOTHROID) 50 MCG tabletIndications:A cquired hypothyroidism TAKE 1 TABLET BY MOUTH DAILY. 90 tablet 7 Active Active Problems Problem Noted Date Diagnosed Date Annual physical exam 01/07/2017 BMI 38.0-38.9,adult 01/07/2017 Essential hypertension 12/31/2016 Acquired hypothyroidism 12/31/2016 Recurrent major depressive disorder, in full rem ission 12/31/2016 Family History Medical History Relation Name Comments Migraines Brother Cancer Father Lung cancer Father Arthritis Mother Cancer Mother Diabetes Mother Heart attack Mother Hyperlipidemia Mother Hypertension Mother Stroke Mother Thyroid disease Mother Breast cancer Paternal Aunt Thyroid disease Sister Ovarian cancer Neg Hx Relation Name Status Comments Brother Father Mother Alive Paternal Aunt Sister Social History Tobacco Use Types Packs/Day Years Used Date Smoking Tobacco: Former Cigarettes Q uit: 2005 Smokeless Tobacco: Never Alcohol Use Standard Drinks/Week Comments No 0 (1 standard drink = 0.6 oz pur e alcohol) Abuse Screen Answer Date Recorded Unsafe at Home or Work/School Not on file Feels Threatened by Someone? Not on file 06/2023 Does Anyone Keep You from Co ntacting Others or Doint Things Outside the Home? Not on file 08/04/2023 Physical Sign of Abuse Present Not on file 1 Housing Stability Answer Date Recorded Current Living Arrangements Not on file 06/2023 Potentially Unsafe Housing Conditions Not on marline e 08/04/2023 Family and Community Support Answer Brendan e Recorded Help with Day-to-Day Activities Not on file 08/04/2023 Lonely or Isolated Not on file 08/04/2023 Employment Answer Date Recorded Do you want help finding or keeping work or a kyree b? Not on file 08/04/2023 Disabilities Answer Date Recorded Concentrating, Remembering, or Making Decisions Difficulty Not on file 08/04/2023 Doing Errands Independently Difficulty Not on fi le 08/04/2023 Education Answer Date Recorded Help with school or training? Not on file Preferred Language Not on file 08/04/2023 Comments Unknown Sex and Gender Information Value Date Recorded Sex Assigned at Not on file Legal Sex Female 1:12 PM EDT Gender Identity Not on file Sexual Orientation Not on file Occupation Industry Job Start Date Job End Date unemployed Not on file Not on file Not on file Last Filed Vital Signs Vital Sign Reading Time Taken Comments Blood Pressure 130/82 04/02/2017 9:04 AM EDT Pulse 60 04/02/2017 9:04 AM EDT Temperature 36.1 C (97 F) 04/02/2017 9:04 AM EDT Respiratory Rate 20 04/02/2017 9:04 AM EDT Oxygen Saturation - - Inhaled Oxygen Concentration - - Weight 108 kg (237 lb 8 oz) 04/02/2017 9:04 AM E DT Height 165.1 cm (5' 5 ) 04/02/2017 9:04 AM EDT Body Mass Index 39.52 04/02/2017 9:04 AM EDT Plan of Treatment Health Maintenance Due Date Last Done Comments Annual Gynecologic Pelvic and Breast Exam 1970 TDAP/TD VACCINES (1 - Tdap) 1989 COLOGUARD 2015 COLON CANCER SCREENING 5 YEAR SIGMOIDOSCOPY 2015 COLONOSCOPY [address] CANCER SCREENING 2015 CT COLONOGRAPHY 2015 FECAL OCCULT BLOOD TEST 2015 FIT Testing (1 year) 2015 ANNUAL PHYSICAL 12/31/2016 HEPATITIS C SCREENING 12/31/2016 MAMMOGRAM 01/08/2019 01/08/2017 Pneumococcal Vaccine 50+ (1 of 1 - PCV) 2020 ZOSTER VACCINE (1 of 2) 2020 COVID-19 Vaccine (1 - ) 06/27/2025 INFLUENZA VACCINE 07/27/2025 12/31/2016 (Declined) Procedures Procedure Name Priority Date/Time Associated Diagnosis Comments MAMMO SCREENING DIGITAL TOMOSYNTHESIS BILATERAL W CAD Routine 01/08/2017 9:36 AM EDT Screening for breast cancer from Last 3 Months or Most Recently Relevant to Health Maintenance Results * (ABNORMAL) Mammo Screening Digital Tomosynthesis Bilateral With CAD (01/08/2017 9:36 AM EDT) Anatomical Region Laterality Modality Breast N/A Mammography 01/08/2017 12:5 9 PM EDT Impressions 01/08/2017 1:01 PM EDT Multiple bilateral findings for which additional imaging is recommended. BIRADS CATEGORY: 0, INCOMPLETE Need additional imaging evaluation. RECOMMENDATION: Left MLO and right CC focal compression views both utilizing 2-D and 3-D imaging. Left ML and CC magnification images. Focused ultrasound evaluation of the right breast. CAD was utilized. The standard false-negative rate of mammography is between 10% and 25%. Complex patterns or increased breast density will markedly elevate the false-negative rate of mammography. A letter, in lay terminology, with the results of this exam will be mailed to the patient. The patient will be contacted by our office to schedule for the additional imaging evaluation. Please accept this as sufficient order for the additional imaging evaluation. Physician Order Diagnostic Mammogram with Breast Ultrasound if needed. Diagnosis: Abnormal Mammogram This report was finalized on 01/08/2017 1:[address] Leatha Gracia MD. Narrative 01/08/2017 1:01 PM EDT BILATERAL DIGITAL SCREENING MAMMOGRAM WITH TOMOSYNTHESIS CLINICAL INDICATION: 46 year old patient with no current breast complaints and no personal history of breast cancer. She has a family history of breast cancer in an aunt diagnosed at age 30. TECHNIQUE: Low dose full field digital breast tomosynthesis imaging was performed with 2D and 3D acquisitions. COMPARISON: This is the patient's baseline exam. FINDINGS: There are scattered areas of fibroglandular density. Asymmetries are present in the lateral right and inferior left breast. Additionally there is a small oval mass present in the mid right 8:00 region. Finally, calcifications are present in the left breast which warrant additional imaging. No spiculated mass or area of architectural distortion is seen. Mahin Rocha MD IMG MAMMOGRAPHY ORDERABLES Yaneth l Result from Last 3 Months or Most Recently Relevant to Health Maintenance Insurance [facility] Care Teams Quantitative Analyst Marketing Relationship Specialty Start Date End Date Mahin Rocha MD [address] [place] [address] PCP - General Family Medicine 12/31/16
--- OUTSIDE RECORDS SUMMARY | 2025-07-01 09:41 | XMS_ITS | Referral Summary ---
Author Organization [employer] ([place], [place], [place], [place]) Address [address] [place] [address] Care Team Providers Care Director Of User Experience Name Role Phone Kristina Guzman MD Unavailable [phone] Graham Sam MD Primary Care Provider [phone] Encounters Date Type Department Care Team Description 06/06/2025 1:45 PM EDT Office Visit [facility] [address] [place] [phone] Kristina Guzman MD Carpal tunnel syndrome on left (Primary Dx); Carpal tunnel syndrome on right; Trigger middle finger of left hand 05/25/2025 1:15 PM EDT Office Visit [facility] - [address] [place] [id number] Kristina Guzman MD Carpal tunnel syndrome on right (Primary Dx); Carpal tunnel syndrome on left; Trigger middle finger of left hand from Last 3 Months Allergies No known active allergies Medications triamcinolone-d [...] Ended Active Problems No known active problems Social History Tobacco Use Types Packs/Day Years [...] Description 09/07/2025 2:00 PM EST Office Visit [facility] - [address] [place] [phone] Kristina Guzman MD [address] [place] [address] Procedures Procedure Name Priority Date/Time Associated Diagnosis [...] drainage, nerve damage and poor cosmetic result [place] protocol: Procedure explained and questions answered to [...] Final Result from Last 3 Months Insurance [facility] Care Teams Director Of User Experience Relationship Specialty Start Date End Date Graham Sam MD [address] [place] [address] PCP - General General Internal Medicine 05/24/25 Kristina Guzman MD [address] [place] [address] Consulting Physician Orthopedic Surgery - Hand 05/24/25
== END 2025-06-29 23:59 ==
LOC: LAB.DROPOF 07-01 09:39
PROVIDERS: PCP Internal Medicine; Visit Provider Internal Medicine
DX: R79.89 Other specified abnormal findings of blood chemistry (principal)
CPT/HCPCS: 80048

== ENCOUNTER 2025-09-12 12:01 | Outpatient (CLI) | payer OTHER, SELFPAY ==
--- NOTE | 2025-09-12 12:04 | XR_ITS ---
FINAL REPORT TECHNIQUE: Right foot 3 views CLINICAL HISTORY: Evaluation of right foot pain COMPARISON: None FINDINGS: RIGHT FOOT: 3 images of the right foot were obtained. There is no evidence of fracture or dislocation. There is a moderate calcaneal plantar spur. A large Adán deformity is noted as well. There are hypertrophic changes of the dorsal intertarsal joints. 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 There is no soft tissue abnormality identified. IMPRESSION: Degenerative changes, with no acute bony abnormality. Reviewed, Interpreted and Dictated by Rafa Brewer MD Transcribed by Jannet Roberson Authenticated and [facility]
== END 2025-09-12 23:59 | disposition home or self-care (01) ==
LOC: RAD 12:02
PROVIDERS: PCP Internal Medicine; Visit Provider Podiatrist
DX: M76.61 Achilles tendinitis, right leg (principal); M77.31 Calcaneal spur, right foot; M17.11 Unilateral primary osteoarthritis, right knee
CPT/HCPCS: 73630